=== PATIENT | female | born 1995 | race Caucasian/White ===

== ENCOUNTER 2017-01-26 04:53 | Emergency (ER) | payer OTHER ==
[~2017-01-26] VITALS: Ht 165.1 cm; Wt 52.0 kg
[~2017-01-26 04:53] MED LIST: BUSP15TA PO; HYDR-755 PO; MELO-1 PO; METH2.5T PO; TRAM50TA PO; VENTAER INH
[2017-01-26 04:59] VITALS: BP 111/68; PULSE 76; RESP 20; TEMP 98.2; O2SAT 98
[2017-01-26] MEDS ORDERED: GABA100C4 PO (05:05)
--- NOTE | 2017-01-26 05:19 | PD ---
HPI Chief Complaint: Psychiatric Symptoms Time Seen by Provider: 04:58 Travel History International Travel<30 days: No Contact w/Intl Traveler<30days: No Traveled to known affect area: No History of Present Illness HPI The patient is a 21 year old female who presents to the [facility] emergency department with a history of being Celis acted prior to arrival when she was found wandering on the street in the [place]. The patient reported hearing voices. The patient was having delusions regarding aliens. The patient reportedly has a known history of posttraumatic stress disorder and multiple personality disorder. The patient is reportedly followed by a psychiatrist and is on gabapentin and BuSpar. The patient reports that she was just walking home when the police found her. The patient reports that she walks every morning before she tries to go to sleep. She reports that she has no focal the sleeping related to panic attacks. She denies any suicidal or homicidal ideations. She reports that she was at a constitution party this evening with her friends doing karaoke. She reports that she did have one shot of liquor this evening. She denies using any other drugs. The patient is uncooperative with further questioning regarding review of systems. The patient reports that she did throw her eyeglasses at a police lieutenant patrol and was taken to the ground scraping the left side of her face and left arm. LMP: Unknown PFSH Past Medical History Narrative Medical The patient's past medical history is significant for posttraumatic stress disorder, multiple personality disorder, borderline personality disorder, tobacco abuse, ankylosing spondylitis. Arthritis: No Anxiety: Yes Depression: Yes Cancer: No Cardiovascular Problems: No Diabetes: No Diminished Hearing: No Endocrine: No Gastrointestinal Disorders: Yes (POSSIBLE CHRONS DISEASE) Genitourinary: Yes (ab pain) Hepatitis: No Hiatal Hernia: No Immune Disorder: Yes (ANKYLOSING SPONDYLITIS) Musculoskeletal: No Neurologic: No Psychiatric: Yes (ANXIETY, MULTIPLE PERSONALITY DISORDER) Reproductive: Yes Respiratory: Yes (ASTHMA) Immunizations Current: Yes Migraines: Yes Thyroid Disease: No ?: Unknown Past Surgical History Narrative Surgical The patient's past surgical history is significant for an ovarian cystectomy. Surgical History: No Previous Surgery AICD: No Joint Replacement: No Pacemaker: No Other Surgery: No Social History Alcohol Use: Yes (OCC) Tobacco Use: Yes (1/2 PPD) Substance Use: No (DENIES) Allergies-Medications (Allergen,Severity, Reaction): Coded Allergies: No Known Allergies (Verified , 01/26/17) Reported Meds & Prescriptions Reported Meds & Active Scripts Active Tramadol (Tramadol HCl) 50 Mg Tab 50 Mg PO Q6H PRN Reported Gabapentin 100 Mg Cap 100 Mg PO BID Hydroxyzine HCl 10 Mg Tab 10 Mg PO DAILY PRN Buspirone (Buspirone HCl) 15 Mg Tab 15 Mg PO BID Ventolin Hfa 18 GM Inh (Albuterol Sulfate) 90 Mcg/Act Aer 2 Puff INH Q6H PRN Meloxicam 15 Mg Tab 15 Mg PO DAILY Methotrexate 2.5 Mg Tab 15 Mg PO Q7D Review of Systems ROS Limitations: Refused Psychiatric: Positive: Anxiety, Depression, Disorder of Thought, Mood Disorder , No: Suicidal Ideations, Substance Abuse, Homicidal Ideation Physical Exam Narrative General: The patient is a well-developed well-nourished female in no acute distress. The patient is intermittently belligerent on examination. Head and Neck exam: Head is normocephalic, with abrasions noted along the left cheek, left side of the forehead. The patient has no step-off or crepitus. No increase facial bone motility on palpation. Eyes: EOMI, pupils are equal round and reactive to light. Nose: Midline septum with pink mucous membranes Mouth: Dentition unremarkable. Moist mucus membranes. Posterior oropharynx is not erythematous. No tonsillar hypertrophy. Uvula midline. Airway patent. Neck: No palpable lymphadenopathy. No nuchal rigidity. No thyromegaly. No spinous process tenderness to palpation. No step-off or crepitus. No erythema or ecchymosis. Cardiovascular: Regular rate and rhythm without murmurs, gallops, or rubs. Lungs: Clear to auscultation bilaterally. No wheezes, rhonchi, or rales. Abdomen: Soft, without tenderness to palpation in all 4 quadrants of the abdomen. No guarding, rebound, or rigidity. Normal bowel sounds are audible. No tenderness on palpation of McBurney's point. Extremities: No clubbing, cyanosis, or edema. 2+ pulses in all 4 extremities. No calf tenderness on palpation. Back: No costovertebral angle tenderness to palpation. Neurologic Exam: Grossly nonfocal. Skin Exam: No rash noted. Data Data Last Documented VS Vital Signs Date Time Temp Pulse Resp B/P Pulse Ox O2 Delivery O2 Flow Rate FiO2 01/26/17 04:59 98.2 76 20 111/68 98 Orders Complete Blood Count With Diff (01/26/17 05:12) Comprehensive Metabolic Panel (01/26/17 05:12) Thyroid Stimulating Hormone (01/26/17 05:12) Urinalysis - C+S If Indicated (01/26/17 05:12) Ed Urine Pregnancytest Poc (01/26/17 05:12) Psych Screen (01/26/17 05:12) Drug Screen, Random Urine (01/26/17 05:12) Alcohol (Ethanol) (01/26/17 05:12) Salicylates (Aspirin) (01/26/17 05:12) Tylenol (Acetaminophen) (01/26/17 05:12) Labs Laboratory Tests Test 01/26/17 05:18 White Blood Count 6.0 TH/MM3 Red Blood Count 4.14 MIL/MM3 Hemoglobin 12.2 GM/DL Hematocrit 36.4 % Mean Corpuscular Volume 87.9 FL Mean Corpuscular Hemoglobin 29.5 PG Mean Corpuscular Hemoglobin 33.6 % Concent Red Cell Distribution Width 13.7 % Platelet Count 207 TH/MM3 Mean Platelet Volume 8.3 FL Neutrophils (%) (Auto) 47.8 % Lymphocytes (%) (Auto) 37.8 % Monocytes (%) (Auto) 8.6 % Eosinophils (%) (Auto) 4.7 % Basophils (%) (Auto) 1.1 % Neutrophils # (Auto) 2.9 TH/MM3 Lymphocytes # (Auto) 2.3 TH/MM3 Monocytes # (Auto) 0.5 TH/MM3 Eosinophils # (Auto) 0.3 TH/MM3 Basophils # (Auto) 0.1 TH/MM3 CBC Comment DIFF FINAL Differential Comment Sodium Level 142 MEQ/L Potassium Level 3.7 MEQ/L Chloride Level 112 MEQ/L Carbon Dioxide Level 20.3 MEQ/L Anion Gap 10 MEQ/L Blood Urea Nitrogen 10 MG/DL Creatinine 0.62 MG/DL Estimat Glomerular Filtration 124 ML/MIN Rate Random Glucose 80 MG/DL Calcium Level 8.8 MG/DL Total Bilirubin 0.3 MG/DL Aspartate Amino Transf 18 U/L (AST/SGOT) Alanine Aminotransferase 16 U/L (ALT/SGPT) Alkaline Phosphatase 62 U/L Total Protein 6.9 GM/DL Albumin 3.9 GM/DL Thyroid Stimulating Hormone 2.530 uIU/ML 3rd Gen Salicylates Level 1.9 MG/DL Acetaminophen Level LESS THAN 2.0 MCG/ML Ethyl Alcohol Level 192 MG/DL [facility] Medical Decision Making Medical Screen Exam Complete: Yes Emergency Medical Condition: Yes Medical Record Reviewed: Yes Differential Diagnosis Exacerbation of depression, versus exacerbation of anxiety, versus acute psychosis, versus substance induced mood disorder Narrative Course During the course of the patients emergency department visit, the patients history, examination, and differential diagnosis were reviewed with the patient. The patient had IV access obtained and blood work sent for analysis. The patient's Celis act was reviewed. A psychiatric screen was ordered. The patient was initially provided Tylenol for pain. The patients laboratory studies were reviewed and remarkable for a white count of 6.0, hemoglobin 12.2, platelets 207 with 8.6 monocytes, 4.7 eosinophils, CMP is remarkable for chloride of 112, CO2 20.3, TSH 2.53. Acetaminophen less than 2, salicylate 1.9, alcohol level CXCII. The patient has been medically cleared for evaluation by the psychiatric screener under a Celis act. Diagnosis Primary Impression: Acute psychosis Cherrie Angulo MD Jan 26, 2017 05:19
[2017-01-26 05:35] LABS: AUTOMATED NEUTROPHIL # 2.9 TH/MM3 (1.8-7.7); BASOPHIL # 0.1 TH/MM3 (0-0.2); BASOPHIL % 1.1 % (0.0-2.0); EOSINOPHIL # 0.3 TH/MM3 (0-0.4); EOSINOPHIL % 4.7 % (0.0-4.0); HEMATOCRIT 36.4 % (35.0-46.0); HEMO FLAGS DIFF FINAL; LYMPH % 37.8 % (9.0-44.0); LYMPHOCYTE # 2.3 TH/MM3 (1.0-4.8); MEAN CELL VOLUME 87.9 FL (80.0-100.0); MEAN CORPUSCULAR HEMOGLOBIN 29.5 PG (27.0-34.0); MEAN CORPUSCULAR HGB CONC 33.6 % (32.0-36.0); MONO % 8.6 % (0.0-8.0); NEUT % 47.8 % (16.0-70.0); PLATELET COUNT 207 TH/MM3 (150-450); RED BLOOD COUNT 4.14 MIL/MM3 (4.00-5.30); RED CELL DISTRIBUTION WIDTH 13.7 % (11.6-17.2)
[2017-01-26 06:02] LABS: ALT (GPT) 16 U/L (9-42); ANION GAP 10 MEQ/L (5-15); AST (GOT) 18 U/L (16-38); BICARBONATE 20.3 MEQ/L (21.0-32.0); BLOOD UREA NITROGEN 10 MG/DL (7-18); CHLORIDE 112 MEQ/L (98-107); GLOMERULAR FILTRATION RATE 124 ML/MIN (>89); POTASSIUM 3.7 MEQ/L (3.5-5.1); SODIUM (NA) 142 MEQ/L (136-145)
[2017-01-26 06:12] LABS: ACETAMINOPHEN LESS THAN 2.0 MCG/ML (10.0-30.0); ALKALINE PHOSPHATASE 62 U/L (45-117); TOTAL BILIRUBIN ADULT 0.3 MG/DL (0.2-1.0)
[2017-01-26] MEDS ORDERED: ACETAMINOPHEN 325 MG TAB PO ONE (06:45)
[2017-01-26 09:27] VITALS: BP 98/56; PULSE 79; RESP 18; O2SAT 98
[2017-01-26 09:37] LABS: BLOOD, URINE NEG (NEG); COMMENT (UR) CULT NOT INDICATED; CULTURE IF INDICATED CULT NOT INDICATED; GLUCOSE,URINE NEG (NEG); HYALINE CAST, URINE 3 /lpf (RARE); KETONE, URINE NEG (NEG); MUCUS URINE FEW /lpf (OCC); NITRITE,URINE NEG (NEG); PH, URINE 5.5 (5.0-8.5); SQUAMOUS EPITHELIAL CELL URINE 4 /hpf (0-5); URINE COLOR YELLOW (YELLW/STRAW)
[2017-01-26 11:18] LABS: AMPHETAMINE, URINE NEG (NEG); BARBITURATES, URINE NEG (NEG); COCAINE, URINE NEG (NEG)
[2017-01-26 12:29] VITALS: BP 110/58; PULSE 80; RESP 18; TEMP 98.3; O2SAT 97
[2017-01-26 14:59] VITALS: BP 110/58; PULSE 80; RESP 18; O2SAT 97
--- NOTE | 2017-01-26 16:35 | PD.PSY.CON ---
Provisional Diagnosis Admission Date History of Present Illness Service Psychiatry Consult Requested By Primary Care Physician Unknown HPI The patient is a 21 year old Woman, Psychiatric History of PTSD, Anxiety, Personality Disorder, Previous Hospitalizations, Previous Suicidal Attempts, who presents to the [facility] emergency department with a history of being Celis acted prior to arrival when she was found wandering on the street in the [employer] education [employer]. The patient reported hearing voices. Was intoxicated with alcohol. The patient was having delusions regarding aliens. The patient is reportedly followed by a psychiatrist and is on gabapentin and BuSpar 10 mg 3 times a day. The patient reports that she was just walking home when the police found her. The patient reports that she walks every morning before she tries to go to sleep. On second evaluation patient states that she doesn't remember the reason she is in the hospital. She said that she wasn't using drugs and alcohol. No clinically sober, she denies depressive symptoms, she denies anxiety, she denies psychosis. She denies suicidal or homicidal ideation , she denies visual and auditory hallucination at this moment. Due to his observation patient has been calm, cooperative at times irritable and demanding. She is oriented 3, no cognitive impairment person. Review of Systems Constitutional: DENIES: Diaphoretic episodes, Fatigue, Fever, Weight gain, Weight loss, Chills, Dizziness, Change in appetite, Night Sweats Endocrine: DENIES: Abnorml menstrual pattern, Heat/cold intolerance, Polydipsia , Polyuria, Polyphagia Eyes: DENIES: Blurred vision, Diplopia, Eye inflammation, Eye pain, Vision loss , Photosensitivity, Double Vision Ears, nose, mouth, throat: DENIES: Tinnitus, Hearing loss, Vertigo, Nasal discharge, Oral lesions, Throat pain, Hoarseness, Ear Pain, Running Nose, Epistaxis, Sinus Pain, Toothache, Odynophagia Respiratory: DENIES: Apneas, Cough, Snoring, Wheezing, Hemoptysis, Sputum production, Shortness of breath Cardiovascular: DENIES: Chest pain, Palpitations, Syncope, Dyspnea on Exertion , PND, Lower Extremity Edema, Orthopnea, Claudication Gastrointestinal: DENIES: Abdominal pain, Black stools, Bloody stools, Constipation, Diarrhea, Nausea, Vomiting, Difficulty Swallowing, Anorexia Genitourinary: DENIES: Abnormal vaginal bleeding, Dysmenorrhea, Dyspareunia, Sexual dysfunction, Urinary frequency, Urinary incontinence, Urgency, Hematuria , Dysuria, Nocturia, Vaginal discharge Integumentary: DENIES: Abnormal pigmentation, Pruritus, Rash, Nail changes, Breast masses, Breast skin changes, Nipple discharge Hematologic/lymphatic: DENIES: Bruising, Lymphadenopathy Immunologic/allergic: DENIES: Eczema, Urticaria Neurologic: DENIES: Abnormal gait, Headache, Localized weakness, Paresthesias, Seizures, Speech Problems, Tremor, Poor Balance Psychiatric: DENIES: Anxiety, Confusion, Mood changes, Depression, Hallucinations, Agitation, Suicidal Ideation, Homicidal Ideation, Delusions Past Family Social History Coded Allergies: No Known Allergies (Verified , 01/26/17) Active Scripts Tramadol 50 Mg Tab50 Mg PO Q6H PRN (PAIN) #15 TAB Ref 0 Prov:Lynn Jewell MD 05/21/16 Reported Medications Gabapentin 100 Mg [id number] Mg PO BID #60 CAP Ref 0 01/26/17 Hydroxyzine HCl 10 Mg Tab10 Mg PO DAILY PRN (ANXIETY) Ref 0 06/08/16 Buspirone 15 Mg Tab15 Mg PO BID Ref 0 06/08/16 Albuterol 18 GM Inh (Ventolin Hfa 18 GM Inh)90 Mcg/Act Aer2 Puff INH Q6H PRN ( SHORTNESS OF BREATH) #1 INHALER Ref 0 06/03/16 Meloxicam 15 Mg Tab15 Mg PO DAILY #30 TAB Ref 0 05/21/16 Methotrexate 2.5 Mg Tab15 Mg PO Q7D Ref 0 05/21/16 Physical Exam Vital Signs Vital Signs Date Time Temp Pulse Resp B/P Pulse Ox O2 Delivery O2 Flow Rate FiO2 01/26/17 14:59 80 18 110/58 97 Room Air 01/26/17 12:29 98.3 Lab Results Labs Laboratory Tests Test 01/26/17 05:18 White Blood Count 6.0 TH/MM3 Red Blood Count 4.14 MIL/MM3 Hemoglobin 12.2 GM/DL Hematocrit 36.4 % Mean Corpuscular Volume 87.9 FL Mean Corpuscular Hemoglobin 29.5 PG Mean Corpuscular Hemoglobin 33.6 % Concent Red Cell Distribution Width 13.7 % Platelet Count 207 TH/MM3 Mean Platelet Volume 8.3 FL Neutrophils (%) (Auto) 47.8 % Lymphocytes (%) (Auto) 37.8 % Monocytes (%) (Auto) 8.6 % Eosinophils (%) (Auto) 4.7 % Basophils (%) (Auto) 1.1 % Neutrophils # (Auto) 2.9 TH/MM3 Lymphocytes # (Auto) 2.3 TH/MM3 Monocytes # (Auto) 0.5 TH/MM3 Eosinophils # (Auto) 0.3 TH/MM3 Basophils # (Auto) 0.1 TH/MM3 CBC Comment DIFF FINAL Differential Comment Sodium Level 142 MEQ/L Potassium Level 3.7 MEQ/L Chloride Level 112 MEQ/L Carbon Dioxide Level 20.3 MEQ/L Anion Gap 10 MEQ/L Blood Urea Nitrogen 10 MG/DL Creatinine 0.62 MG/DL Estimat Glomerular Filtration 124 ML/MIN Rate Random Glucose 80 MG/DL Calcium Level 8.8 MG/DL Total Bilirubin 0.3 MG/DL Aspartate Amino Transf 18 U/L (AST/SGOT) Alanine Aminotransferase 16 U/L (ALT/SGPT) Alkaline Phosphatase 62 U/L Total Protein 6.9 GM/DL Albumin 3.9 GM/DL Thyroid Stimulating Hormone 2.530 uIU/ML 3rd Gen Salicylates Level 1.9 MG/DL Acetaminophen Level LESS THAN 2.0 MCG/ML Ethyl Alcohol Level 192 MG/DL Mental Status Examination Appearance woman, age appearing, multiple bruises in her face, calm and cooperative Speech: Unremarkable Orientation: x3 Memory: Unremarkable Thought Process: Logical Thought Content: Unremarkable Hallucination Type: None Suicidal Ideation: No Previous Suicide Attempts: No Homicidal Ideation: No Previous Homicide Attempts: No Judgment: WNL Affect: Good Mood: Appropriate Motor Activity: Normal gait Assessment & Plan Problem List: (1) adjustment disorder with mixed emotions and depression (2) Alcohol abuse with alcohol-induced mood disorder Assessment & Plan: On psychiatric evaluation today patient is calm, cooperative , logical, coherent and relevant. Patient claims that she doesn't remember the reason she is in the hospital, she admits that she was using alcohol and drugs, would not elaborate about the drugs she was using. She denies depressive symptoms, denies anxiety, denies psychosis. She denies visual and auditory hallucinations, suicidal and homicidal ideation. She does not meet criteria for involuntary psychiatric admission at this moment. Celis act will be lifted. ICD Code: F10.14 Assessment & Plan Estimated LOS: Adan Duran MD Jan 26, 2017 16:35
== END 2017-01-26 16:03 | disposition home or self-care (01) ==
LOC: NEPC 04:53 → NEPJ 16:03
DX: F23 Brief psychotic disorder (principal); F32.9 Major depressive disorder, single episode, unspecified; M45.9 Ankylosing spondylitis of unspecified sites in spine; F44.81 Dissociative identity disorder; J45.909 Unspecified asthma, uncomplicated; F17.200 Nicotine dependence, unspecified, uncomplicated; Z79.899 Other long term (current) drug therapy
CPT/HCPCS: 80053; 80307; 81001; 84443; 84703; 85025; 99284